=== PATIENT | female | born 2000 | race Caucasian/White ===

== ENCOUNTER → 2018-06-22 11:11 | Outpatient (CLI) | payer MEDICAID, SELFPAY | PROVIDERS: PCP Obstetrics & Gynecology; Visit Provider Obstetrics & Gynecology | DX: O03.9 Complete or unspecified spontaneous abortion without complication (principal) | CPT/HCPCS: 36415; 86900; 86901 ==

== ENCOUNTER → 2018-12-22 10:33 | Outpatient (CLI) | payer MEDICAID, SELFPAY ==
--- NOTE | 2018-12-22 10:34 | US_ITS ---
US transvaginal HISTORY: Mid pelvic pain ITS.REASON: pelvic pain ORDERING PHYSICIAN: Marty Spaulding MD PATIENT AGE: 18 years Comparison: None FINDINGS: The uterus 6 x 3 x 5 cm with a combined endometrial thickness of 9 mm. A small sonolucent areas present within the endometrium which measures 2 mm. No uterine mass evident. The right ovary is 2.5 x 2 cm. Left ovary is 2.9 x 2.3 cm. No adnexal mass or cul-de-sac fluid. IMPRESSION: 1. Very small cystic area within the endometrium at 2 mm nonspecific. Cannot exclude a possibility of a very early gestational sac. Please correlate clinically. 2. Otherwise negative pelvic ultrasound
== END ==
PROVIDERS: PCP Internal Medicine Adolescent Medicine; Visit Provider Obstetrics & Gynecology
DX: R10.2 Pelvic and perineal pain (principal)
CPT/HCPCS: 76830

== ENCOUNTER → 2018-12-29 09:31 | Outpatient (CLI) | payer MEDICAID, SELFPAY ==
[2018-12-29 10:09] LABS: Basophils % 0.5 % (0.1-2.0); Eosinophils # 0.1 K/mm3 (0.0-0.4); Eosinophils % 2.1 % (0.1-12.0); Hematocrit 43.5 % (37.0-47.0); Hemoglobin 14.4 g/dL (12.2-16.2); Lymphocytes # 1.6 K/mm3 (0.7-4.5); Lymphocytes % 30.5 % (10-50); Mean Corpuscular HGB Conc 33.1 g/dL (31.8-35.4); Mean Corpuscular Hemoglobin 30.9 pg (27.0-31.2); Mean Corpuscular Volume 93.2 fl (81-99); Mean Platelet Volume 7.3 fl (7.4-10.4); Monocytes # 0.2 K/mm3 (0.1-1.0); Monocytes % 4.2 % (1.7-9.3); Neutrophils # 3.2 K/mm3 (1.8-7.8); Neutrophils % 62.7 % (37.0-80.0); Platelet Count 201 K/mm3 (142-424); Red Blood Count 4.66 M/mm3 (4.20-5.40); Red Cell Distribution Width 12.7 % (11.5-17.5); White Blood Count 5.1 K/mm3 (4.5-13.0)
[2018-12-29 11:13] LABS: Thyroid Stimulating Hormone 1.64 uIU/ml (0.516-4.13)
[2018-12-30 08:20] LABS: HIV Screen 4th Generation wRfx Non Reactive (Non Reactive); Rapid Plasma Reagin Ab Titer Non Reactive (NonRea<1:1)
[2019-01-01 13:23] LABS: Hepatitis B Surface Antigen Negative (Negative); Rubella Antibodies, IgG 2.56 index (Immune >0.99)
== END ==
PROVIDERS: Visit Provider Obstetrics & Gynecology
DX: Z34.90 Encounter for supervision of normal pregnancy, unspecified, unspecified trimester (principal)
CPT/HCPCS: 36415; 84443; 85025; 86592; 86703; 86762; 86850; 87340; G0432

== ENCOUNTER → 2019-03-21 13:22 | Outpatient (CLI) | payer MEDICAID, SELFPAY ==
[2019-03-23 01:07] LABS: AFP Value 41.6 ng/mL (.); DIA MoM 1.33 (.); DIA Value 220.62 pg/mL (.); DSR (Second Trimester) 1 IN 10000 (.); Maternal Age At EDD 21.2 yr (.); OSBR Risk 1 IN 7366 (.); Results Report (.); hCG Value 13214 mIU/mL (.); uE3 MoM 1.29 (.); uE3 Value 1.31 ng/mL (.)
[2019-03-23 13:19] LABS: Gestat. Age Based On EDD (.)
== END ==
PROVIDERS: Visit Provider Obstetrics & Gynecology
DX: Z34.90 Encounter for supervision of normal pregnancy, unspecified, unspecified trimester (principal)
CPT/HCPCS: 36415; 82106

== ENCOUNTER 2019-08-02 18:46 | Outpatient (CLI) | payer MEDICAID, SELFPAY ==
[2019-08-02 18:59] VITALS: BMI 30.7
[2019-08-02 19:05] VITALS: BP 109/71; PULSE 98; RESP 17; TEMP 36.6; O2SAT 98; BMI 30.7
[2019-08-02 19:15] LABS: Microscopic, Urine URINE MICROSCOPIC (MICROSCOPIC)
[2019-08-02 19:22] LABS: Appearance,Urine CLEAR (Clear); Bilirubin,Urine Negative (Negative); Blood, Urine Negative (Negative); Color,Urine YELLOW (Yellow); Glucose,Urine (UA) Negative (Negative); Ketones,Urine Negative (Negative); Leukocyte Esterase,Urine Negative (Negative); Nitrate,Urine Negative (Negative); Protein,Urine Negative (Negative); Specific Gravity, Urine >= 1.030 (1.005-1.030)
[2019-08-02 19:24] LABS: Amphetamine/Metha Screen,Urine Negative ng/mL (<1000); Barbiturates Screen,Urine Negative ng/mL (<200); Benzodiazepines Screen,Urine Negative ng/mL (<200); Cannabinoid Screen,Urine Negative ng/mL (<50); Cocaine Screen,Urine Negative ng/mL (<300); Methadone Screen,Urine Negative ng/mL (<300); Opiate Screen,Urine Negative ng/mL (<300); Phencyclidine Screen,Urine Negative ng/mL (<25)
[2019-08-02 19:37] LABS: Calcium Oxalate Crystals,Urine 1+ /lpf; Mucus,Urine 1+ /lpf; WBC,Urine Occasional #/hpf (0-3)
== END 2019-08-02 20:23 | disposition home or self-care (01) ==
LOC: OBOUT 18:50 → OB 18:51
PROVIDERS: Visit Provider Obstetrics & Gynecology
DX: O47.03 False labor before 37 completed weeks of gestation, third trimester (principal); Z3A.36 36 weeks gestation of pregnancy
CPT/HCPCS: 59025; 80305; 81001

== ENCOUNTER → 2021-04-17 17:16 | Outpatient (CLI) | payer OTHER, SELFPAY ==
[2021-04-17 17:40] LABS: Basophils % 0.4 % (0.1-2.0); Eosinophils # 0.2 K/mm3 (0.0-0.4); Eosinophils % 2.1 % (0.1-12.0); Hemoglobin 14.9 g/dL (12.2-16.2); Lymphocytes # 2.1 K/mm3 (0.7-4.5); Lymphocytes % 28.8 % (10-50); Mean Corpuscular HGB Conc 34.8 g/dL (31.8-35.4); Mean Corpuscular Hemoglobin 31.2 pg (27.0-31.2); Mean Corpuscular Volume 89.8 fl (81-99); Mean Platelet Volume 8.3 fl (7.4-10.4); Monocytes # 0.3 K/mm3 (0.1-1.0); Monocytes % 3.7 % (1.7-9.3); Neutrophils # 4.7 K/mm3 (1.8-7.8); Neutrophils % 64.9 % (37.0-80.0); Platelet Count 193 K/mm3 (142-424); Red Blood Count 4.78 M/mm3 (4.20-5.40); Red Cell Distribution Width 13.4 % (11.5-17.5); White Blood Count 7.3 K/mm3 (4.8-10.8)
[2021-04-17 17:57] LABS: Chloride 106 mmol/L (98-107); Potassium 4.1 mmoL/L (3.5-5.1); Sodium 142 mmol/L (136-145)
[2021-04-17 18:00] LABS: Alanine Aminotransferase 7 U/L (12-78); Albumin Level 4.6 g/dl (3.5-5.0); Albumin/Globulin Ratio 1.8 (1.1-1.8); Alkaline Phosphatase 66 U/L (38-126); Anion Gap 11.1 mEq/L (5-15); Aspartate Amino Transferase 21 U/L (14-36); Bilirubin,Total 0.5 mg/dl (0.2-1.3); Blood Urea Nitrogen 3 mg/dl (7-17); Calcium 9.2 mg/dl (8.4-10.2); Carbon Dioxide 29 mmol/L (22.0-30.0); Estimated Glomerular Filt Rate 125 ml/min (>60); GFR (African American) 151 ML/MIN (>60); Globulin 2.6 g/dL (1.3-3.2); Glucose 62 mg/dl (74-100); Total Protein,Serum 7.2 g/dl (6.3-8.2)
[2021-04-17 18:31] LABS: Thyroid Stimulating Hormone 0.44 uIU/mL (0.465-4.68)
[2021-04-17 19:12] LABS: Vitamin B12 269 pg/mL (239-931)
[2021-04-20 18:44] LABS: Free T4 (Free Thyroxine) 1.26 ng/dl (0.78-2.19)
== END ==
PROVIDERS: Internal Medicine Adolescent Medicine; Visit Provider Nurse Practitioner Family
DX: R53.83 Other fatigue (principal); T14.8XXA Other injury of unspecified body region, initial encounter
CPT/HCPCS: 80053; 82306; 82607; 84439; 84443; 85025